=== PATIENT | female | born 1950 | race Caucasian/White ===

== ENCOUNTER 2016-08-29 11:27 | Emergency (ER) | payer BC, OTHER ==
[~2016-08-29] VITALS: Ht 167.6 cm; Wt 75.0 kg
[~2016-08-29 11:27] MED LIST: ALBU8I INH; PRED50TA PO
[2016-08-29 11:28] VITALS: BP 137/70; PULSE 72; RESP 20; TEMP 97.6; O2SAT 97
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
[2016-08-29 12:07] VITALS: BP 128/75
== END 2016-08-29 12:08 | disposition home or self-care (01) ==
LOC: NEPD 11:27
DX: S09.90XA Unspecified injury of head, initial encounter (principal); W50.0XXA Accidental hit or strike by another person, initial encounter
CPT/HCPCS: 99282